=== PATIENT | female | born 2005 | race Hispanic/Latino ===

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

== ENCOUNTER 2025-02-19 21:46 | Emergency (ER) | payer SELFPAY ==
[2025-02-19 21:49] VITALS: BP 131/79; PULSE 115; RESP 16; TEMP 37.1; O2SAT 100
[2025-02-20] MEDS: SULFAMETHOXAZOLE/TRIMETHOPRIM 800/160 MG DS TABLET 1 TAB PO (01:22)
[2025-02-20] MEDS: HYDROcodone/acetaminophen (*CRX) 5-325 MG TABLET 1 TAB PO (01:23)
[2025-02-20 01:31] VITALS: BP 125/72; RESP 14
--- NOTE | 2025-02-20 02:24 | ED_ITS ---
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 Patient reports she 1st noticed it 2 days ago. She denies history of similar abscesses. Has had an inflamed hair follicle in the past, but states this is different. Reports pain, swelling to left groin. Denies spontaneous drainage. Denies fevers. Related Data Allergies Allergy/AdvReac Type Severity Reaction Status Date / Time No Known Allergies Allergy Verified 02/19/25 21:53 Review of Systems Review of Systems: All systems reviewed & are unremarkable except as noted in HPI. All systems reviewed & are unremarkable except as noted in HPI and below Exam Narrative: GENERAL: Well appearing, well-nourished, non-toxic, in no acute distress. HEAD: Normocephalic, atraumatic. RESPIRATORY: Airway patent, respirations nonlabored. CARDIOVASCULAR: Regular rate and rhythm MUSCULOSKELETAL: Moves all extremities. No gross deformities. SKIN: Warm, dry, normal color. 1x1cm superficial abscess to L groin, lateral from L labia majora. Central area of fluctuance and focal tenderness. Mild surrounding induration/erythema. No necrosis or skin breakdown. No vesicular lesions. NEURO: A&O X3. Speech clear. PSYCHIATRIC: Anxious, tearful. Normal interaction. Course Vital Signs Vital signs: Vital Signs Temperature 98.8 F 02/19/25 21:49 Pulse Rate 115 H 02/19/25 21:49 Respiratory Rate 16 02/19/25 21:49 Blood Pressure 131/79 02/19/25 21:49 Pulse Oximetry 100 02/19/25 21:49 Oxygen Delivery Room Air 02/19/25 21:49 Temperature 98.8 F 02/19/25 21:49 Pulse Rate 115 H 02/19/25 21:49 Respiratory Rate 16 02/19/25 21:49 Blood Pressure 131/79 02/19/25 21:49 Pulse Oximetry 100 02/19/25 21:49 Oxygen Delivery Room Air 02/19/25 21:49 Procedures Abscess I/D other: Date of Incision: 02/20/25 Time of Incision: 02:10 Side (if applicable): left (groin) Sedation/analgesia: none Local Anesthetic: lidocaine 1% Amount of anesthesia used (mL): 5 Technique: incised with #11 blade and probed loculations Amount of fluid expressed (mL): 15 Irrigation: Yes Packing used?: none I&D Results: Pus and Blood Complications: other (none) MDM - Female Genitourinary MDM Narrative Medical decision making narrative: Exam consistent with subcutaneous abscess to left groin. Bedside ultrasound was utilized by myself to confirm large superficial fluid collection. I&D was performed. Large amount of purulent drainage was expressed. Patient started on Bactrim. Discussed further management of abscess at home including sitz baths, warm compresses. Discussed strict return precautions. Patient discharged in stable condition. Medical Records Attestation: I reviewed the patient's medical records. Discharge Plan Discharge Clinical Impression: Abscess of left groin Patient Disposition: Home Condition: Stable Instructions: Antibiotic Form, Abscess (ED), Sitz Bath (DC), Abscess Follow-up (ED) Additional Instructions: Take antibiotics as prescribed. Recommend frequent warm compresses/Sitz baths to left groin. Recommend Tylenol/ibuprofen as needed for pain. Follow-up with your primary care doctor for further evaluation if needed. Return for new or worsening concerns. Patient Language: Welsh Prescriptions: New sulfamethoxazole-trimethoprim [Bactrim DS] 800-160 mg tablet 1 tablet PO Q12H 7 Days Qty: 14 0RF No Action hydrocodone-acetaminophen 5-325 mg tablet 1 tablet PO Q8H PRN (Reason: pain) Qty: 8 0RF amoxicillin-pot clavulanate 875-125 mg tablet 1 tablet PO Q12H 7 Days Qty: 14 0RF Follow-up/Referrals: Naomi Meyer MD [Physician, Family Practice] Referral Note: PRIMARY CARE PHYSICIAN,PROVIDER RELATIONS ADVOCATE [Primary Care Provider, Internal Medicine] Stand Alone Forms: Work/School Release IP Time of Disposition: 02:26
[2025-02-20 02:33] VITALS: RESP 18; O2SAT 99
[2025-02-20 02:46] VITALS: BP 124/74; PULSE 90; RESP 21; O2SAT 100
== END 2025-02-20 02:41 | disposition home or self-care (01) ==
PROVIDERS: Emergency Provider Physician Assistant
DX: L02.214 Cutaneous abscess of groin (principal)
CPT/HCPCS: 10060; 99283; A9270